=== PATIENT | female | born 1960 | race Caucasian/White ===

== ENCOUNTER 2020-10-05 19:55 | Emergency (ER) | payer OTHER, SELFPAY ==
--- NOTE | ~2020-10-05 | XR_ITS ---
EXAMINATION: XR finger 2nd RT min 2V DATE: 10/05/2020 21:22 INDICATION: Pain at the right second digit post fall TECHNIQUE: Dorsal palmar, lateral and 2 oblique views of the right second digit were obtained COMPARISON: None FINDINGS: Dorsal dislocation at the right second proximal interphalangeal joint. No fracture. 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 IMPRESSION: 1. Dorsal dislocation without fracture at the right second proximal interphalangeal joint. Reviewed, dictated and finalized at location . AINABILITY SPECIALIST IMPRESSION: 1. Dorsal dislocation without fracture at the right second proximal interphalan geal joint.
--- NOTE | ~2020-10-05 | XR_ITS ---
EXAMINATION: XR finger 2nd RT min 2V DATE: 10/05/2020 22:07 INDICATION: Postreduction dislocated right second proximal interphalangeal joint. TECHNIQUE: Dorsal palmar and lateral views of the right second digit were obtained COMPARISON: 10/05/2020 at 9:15 PM FINDINGS: Successful reduction to anatomic alignment of the previously dislocated right second proximal interph alangeal joint. No fractures identified. Minimal to mild polyarticular osteoarthritis in the visualiz ed right hand with typical distribution. Prominent soft tissue swelling centered about the second pro ximal interphalangeal joint. IMPRESSION: 1. Successful reduction anatomic alignment of the previously dislocated right second proximal interph alangeal joint. No fracture. Reviewed, dictated and finalized at location H. NCILING CLERK IMPRESSION: 1. Successful reduction anatomic alignment of the previously dislocated right s econd proximal interphalangeal joint. No fracture.
[2020-10-05 20:15] VITALS: BP 148/77; PULSE 87; RESP 14; TEMP 36.6; O2SAT 95
--- NOTE | 2020-10-05 21:37 | ED_ITS ---
HPI - Extremity Injury (Upper) General Chief Complaint: Extremity Injury, Upper Stated Complaint: jammed finger Time Seen by Provider: 10/05/20 21:22 History of Present Illness HPI narrative: Fell onto outstretched right hand. Sustained painful deformity to the right index finger. Unable to bend it. Pain is moderate. Now numbness, wound, additional injury. Related Data Allergies Allergy/AdvReac Type Severity Reaction Status Date / Time simvastatin Allergy Severe back pain Verified 09/30/09 09:35 Review of Systems Review of Systems: All systems reviewed & are unremarkable except as noted in HPI and below PMFSH Past Medical History Medical History (Updated 10/05/20 @ 21:59 by Bebeto Otero MD) Hyperlipidemia Social History Social History (Updated 10/05/20 @ 21:56 by Bebeto Otero MD) Smoking status: Never smoker Exam Const: General: healthy appearing, no acute distress and alert Orientation/consciousness: patient oriented x3 HENMT: Head: normal to inspection Resp: Effort & Inspection: normal respiratory effort Skin: General skin exam: normal color Wounds: no wounds Neuro: General: patient oriented x3, moves all extremities and CN's II-XI intact bilaterally Other: distal sensation intact in RUE Extrem: Other: deformity at PIP in right index finger Psych: Appearance: grossly normal and well kempt Mental Status: mental status grossly normal Affect: normal affect Course Vital Signs Vital signs: Vital Signs Temperature 36.6 C 10/05/20 20:15 Pulse Rate 87 10/05/20 20:15 Respiratory Rate 14 10/05/20 20:15 Blood Pressure 148/77 H 10/05/20 20:15 Pulse Oximetry 95 10/05/20 20:15 Temperature 36.6 C 10/05/20 20:15 Pulse Rate 87 10/05/20 20:15 Respiratory Rate 14 10/05/20 20:15 Blood Pressure 148/77 H 10/05/20 20:15 Pulse Oximetry 95 10/05/20 20:15 Procedures Orthopedic Joint Reduction Joint #1: Orthopedic Joint Reduction Date: 10/05/20 Orthopedic Joint Reduction Time: 21:58 Side: right Joint Reduction Location: finger Analgesia: other (digital block) Pre-Procedure Neuro Vascular Exam: normal Local Anesthesia: lidocaine 1% Amount of anesthesic used (mL): 4 Technique used: direct manipulation Post-reduction neuro exam: intact Post-reduction vascular: intact Post Reduction X-Ray Obtained: Yes Post Reduction X-Ray Results: reduced Splint Applied: Yes Patient Tolerated Procedure: well Discharge Plan Discharge Clinical Impression: Closed fracture dislocation of proximal interphalangeal (PIP) joint of finger Qualifiers: Encounter type: initial encounter Qualified Code(s): S62.609A - Fracture of uns pecified phalanx of unspecified finger, initial encounter for closed fracture Patient Disposition: Home, Self-Care Condition: Stable Instructions: Finger Dislocation (ED) Follow-up/Referrals: Marv,Harris Sargent MD [Primary Care Provider] -
[2020-10-05] MEDS: LIDOCAINE HCL 1% LOCAL INJ 20 ML VIAL INFILTRATE (21:48)
== END 2020-10-05 22:15 | disposition home or self-care (01) ==
PROVIDERS: Emergency Provider Emergency Medicine; PCP Family Medicine
DX: S63.280A Dislocation of proximal interphalangeal joint of right index finger, initial encounter (principal); E78.5 Hyperlipidemia, unspecified; W19.XXXA Unspecified fall, initial encounter
CPT/HCPCS: 26770; 73140; 99285

== ENCOUNTER 2023-01-16 08:54 | Emergency (ER) | payer OTHER, SELFPAY ==
[2023-01-16 09:06] VITALS: BP 126/64; PULSE 70; RESP 16; TEMP 36.2; O2SAT 100
[2023-01-16 09:07] VITALS: BP 126/64; PULSE 70; RESP 16; TEMP 36.2; O2SAT 100
--- NOTE | 2023-01-16 09:33 | ED.URI ---
HPI - URI/Sore Throat General Chief Complaint: Upper Respiratory Infection Stated Complaint: sorethroat Time Seen by Provider: 01/16/23 09:16 Source: patient Mode of arrival: ambulatory Limitations: no limitations History of Present Illness HPI Narrative: Patient presents today complaining of a sore throat, nasal congestion, subjective fever, and diarrhea since this morning. She took a dose of Tylenol at 4:00 a.m. this morning. Currently rates her sore throat 08/22. Granddaughter, who lives with her, was diagnosed with strep throat last week. Related Data Home Medications Medication Instructions Recorded Confirmed bupropion HCl 100 mg tablet,12 hr 100 mg PO BID 01/16/23 01/16/23 sustained-release diclofenac sodium 75 mg 75 mg PO DAILY 01/16/23 01/16/23 tablet,delayed release estradiol 4 mcg vaginal insert 4 mcg vaginal DAILY 01/16/23 01/16/23 (Imvexxy Maintenance Pack) ezetimibe 10 mg tablet 10 mg PO DAILY 01/16/23 01/16/23 levothyroxine 50 mcg tablet 50 mcg PO DAILY 01/16/23 01/16/23 orphenadrine citrate 100 mg 100 mg PO DAILY 01/16/23 01/16/23 tablet,extended release pantoprazole 40 mg tablet,delayed 40 mg PO DAILY 01/16/23 01/16/23 release temazepam 15 mg capsule 15 mg PO HS PRN Insomnia 01/16/23 01/16/23 Allergies Allergy/AdvReac Type Severity Reaction Status Date / Time simvastatin AdvReac Intermediate back pain Verified 01/16/23 09:04 Review of Systems Review of Systems: CONSTITUTIONAL: Denies body aches, chills, or sweats.+ subjective fever EYES: Denies visual changes, redness, or discharge. ENT: Denies rhinorrhea, or otalgia.+ sore throat, congestion CARDIOVASCULAR: Denies chest pain, palpitations, or edema. RESPIRATORY: Denies cough or dyspnea. GASTROINTESTINAL: Denies abdominal pain, nausea, vomiting.+ diarrhea GENITOURINARY: Denies dysuria or hematuria. SKIN: Denies rash, itching, or wounds. MUSCULOSKELETAL: Denies back pain, joint pain, or myalgia. NEUROLOGIC: Denies headache, numbness, tingling, or weakness. PSYCH: Denies depression or anxiety. [facility] Past Medical History Medical History Hyperlipidemia Social History Social History Smoking status: Never smoker Comments At time of signature, I have reviewed and agree with nursing past medical, surgical, social and family history unless otherwise noted. Please see nursing chart for further information. There is no relevant family history pertinent to the presenting complaint Exam Narrative: GENERAL: Well-appearing, well-nourished, and in no acute distress. HEAD: Normocephalic, atraumatic. EYES: EOMI. No redness or drainage. Conjunctivae normal. ENT: Mucous membranes pink and moist. Nares clear. No rhinorrhea. TMs normal bilaterally. Throat mildly erythematous without edema or exudate. Uvula midline. NECK: Normal AROM. Supple. No lymphadenopathy. CHEST: No respiratory distress. Clear to auscultation. HEART: Regular rate and rhythm. No murmur appreciated. Normal peripheral pulses. EXTREMITIES: Normal range of motion. No edema. SKIN: Warm, dry, no rash. Capillary refill normal. Normal skin turgor. NEURO: No focal deficits. Alert and oriented x3. Gait steady. PSYCH: Normal affect. No signs of depression or anxiety. Course Course Level of Care: Express Care Visit Vital Signs Vital signs: Vital Signs Temperature 97.1 F L 01/16/23 09:06 Pulse Rate 70 01/16/23 09:06 Respiratory Rate 16 01/16/23 09:06 Blood Pressure 126/64 01/16/23 09:06 Pulse Oximetry 100 01/16/23 09:06 Oxygen Delivery Room Air 01/16/23 09:06 Temperature 97.1 F L 01/16/23 09:07 Pulse Rate 70 01/16/23 09:07 Respiratory Rate 16 01/16/23 09:07 Blood Pressure 126/64 01/16/23 09:07 Pulse Oximetry 100 01/16/23 09:07 Oxygen Delivery Room Air 01/16/23 09:07 Reviewed. Pt has been instructed
== END 2023-01-16 09:40 | disposition home or self-care (01) ==
PROVIDERS: Emergency Provider Nurse Practitioner; PCP Family Medicine
DX: B34.9 Viral infection, unspecified (principal); E78.5 Hyperlipidemia, unspecified
CPT/HCPCS: 87081; 87880; 99213; G0463

== ENCOUNTER 2023-12-07 18:58 | Emergency (ER) | payer OTHER, SELFPAY ==
--- NOTE | 2023-12-07 19:20 | ED.URI ---
HPI - URI/Sore Throat General Chief Complaint: Upper Respiratory Infection Stated Complaint: cold/flu symptoms Time Seen by Provider: 12/07/23 19:20 Source: patient Mode of arrival: ambulatory Limitations: no limitations History of Present Illness HPI Narrative: Luci is a 63-year-old female patient presenting to the clinic today with complaints of cold/flu symptoms times. She reports MD elicited complaint: sore throat and nasal congestion Related Data Home Medications Medication Instructions Recorded Confirmed bupropion HCl 100 mg tablet,12 hr 100 mg PO BID 01/16/23 12/07/23 sustained-release diclofenac sodium 75 mg 75 mg PO DAILY 01/16/23 12/07/23 tablet,delayed release ezetimibe 10 mg tablet 10 mg PO DAILY 01/16/23 12/07/23 levothyroxine 50 mcg tablet 50 mcg PO DAILY 01/16/23 12/07/23 orphenadrine citrate 100 mg 100 mg PO DAILY 01/16/23 12/07/23 tablet,extended release pantoprazole 40 mg tablet,delayed 40 mg PO DAILY 01/16/23 12/07/23 release temazepam 15 mg capsule 15 mg PO HS PRN Insomnia 01/16/23 12/07/23 dicyclomine 20 mg tablet mg 12/07/23 hydroxyzine HCl 25 mg tablet mg 12/07/23 ondansetron HCl 4 mg tablet mg 12/07/23 tizanidine 2 mg tablet mg 12/07/23 Allergies Allergy/AdvReac Type Severity Reaction Status Date / Time simvastatin AdvReac Intermediate back pain Verified 12/07/23 19:36 Review of Systems Review of Systems: Pertinent positives per HPI. Patient denies any rash, headache, visual changes, dizziness, shortness of breath, chest pain, palpitations, nausea, vomiting, diarrhea, constipation, abdominal pain, or any urinary issues. PMFSH Past Medical History Medical History Hyperlipidemia Social History Social History Smoking status: Never smoker Comments At the time of my signature, I reviewed and agree with the nursing past medical, surgical, social, and family history. There is no relevant family history pertinent to the patient complaint. Exam Narrative: General: Well-developed, well nourished, in no apparent distress Head: Normocephalic, atraumatic Eyes: Pupils equally round and reactive to light bilaterally, EOM intact, sclera and conjunctive clear, no discharge, lids normal Ears: TMs intact and congested, ear canals clear, no drainage, grossly hearing normal. Nose: Nares patent, clear discharge, no inflammation, no sinus tenderness. Mouth: Oral pharynx without lesions or masses, good dentition, MMM. Neck: Supple, trachea midline, no enlargement of anterior or posterior cervical nodes, no thyroid masses or goiter palpable. Cardio: Regular rate and rhythm, s1 and s2 normal, no murmur appreciated. Resp: Clear to auscultation bilaterally, no rhonchi, rales, wheezing or rubs Course Course Emergency Course: Portions of this record may have been created with voice recognition software. Level of Care: Express Care Visit Vital Signs Vital signs: Vital signs reviewed MDM - URI/Sore Throat MDM Narrative Medical decision making narrative: At the time of visit patient is resting comfortably on the exam table. Patient appears to be nontoxic. Labs: COVID and influenza testing was performed. COVID testing was negative. Influenza a was positive Plan: Patient has influenza a. Work note was given. supportive measures were discussed with the patient and they voiced understanding discharge instructions and agrees to treatment plan. Return precautions reviewed Differential Diagnosis Differential diagnosis: Likely upper respiratory infection, otitis media, sinusitis, viral infection, bronchitis, influenza, pharyngitis and other (COVID) Discharge Plan Discharge Clinical Impression: Influenza A Patient Disposition: Home, Self-Care Condition: Stable Instructions: Antibiotic Form, Influenza (ED) Additional Instructions: COVID coral
[2023-12-07 19:35] VITALS: BP 104/73; PULSE 102; RESP 18; TEMP 37.2; O2SAT 98
[2023-12-07 19:38] VITALS: BP 104/73; PULSE 102; RESP 18; TEMP 37.2; O2SAT 98
== END 2023-12-07 19:50 | disposition home or self-care (01) ==
PROVIDERS: Emergency Provider Nurse Practitioner Family; PCP Family Medicine
DX: J10.1 Influenza due to other identified influenza virus with other respiratory manifestations (principal); E78.5 Hyperlipidemia, unspecified; Z79.899 Other long term (current) drug therapy; Z20.822 Contact with and (suspected) exposure to COVID-19
CPT/HCPCS: 87426; 87804; 99213; G0463